=== PATIENT | male | born 1930 | race Caucasian/White ===

== ENCOUNTER 2019-08-18 08:19 | Day surgery (SDC) | payer MEDICARE, BC ==
[2019-08-13 16:11] LABS: CLARITY,URINE CLEAR (Clear); COLOR,URINE STRAW (Yellow); GLUCOSE, URINE NEGATIVE (Neg); KETONES,URINE NEGATIVE (Neg); LEUKOCYTE ESTERASE ,URINE NEGATIVE (Neg); NITRITES, URINE NEGATIVE (Neg); OCCULT BLOOD,URINE TRACE-INTACT (Neg); PH,URINE 6.5 (4.8-8.0); PROTEIN,URINE NEGATIVE (Neg); UROBILINOGEN,URINE 0.2 E.U/dL (0.2-1.0)
[2019-08-13 16:12] LABS: BASOPHILS % (AUTO) 0.4 % (0-1); EOSINOPHILS # (AUTO) 0.1 X10'3 (0-0.9); EOSINOPHILS % (AUTO) 2.6 % (0-6); LYMPHOCYTES # (AUTO) 1.4 X10'3 (1.1-4.8); MEAN CORPUSCULAR HEMOGLOBIN 30.8 PG (27.0-31.0); MEAN CORPUSCULAR HGB CONC 33.6 g/dL (33.0-36.5); MEAN CORPUSCULAR VOLUME 91.7 FL (78-98); MEAN PLATELET VOLUME 9.3 FL (7.4-10.4); MONOCYTES # (AUTO) 0.6 X10'3 (0-0.9); NEUTROPHILS # (AUTO) 2.7 X10'3 (1.8-7.7); PRE OP HEMATOCRIT 44.7 % (42.0-52.0); PRE OP PLATELET COUNT 186 X10'3 (140-440); RED BLOOD COUNT 4.87 X10'6 (4.70-6.10); RED CELL DISTRIBUTION WIDTH 14.3 % (11.5-14.5)
[2019-08-13 16:12] LABS: UA COLLECTION TYPE CLN CATCH MIDSTREAM
[2019-08-13 16:17] LABS: BACTERIA,URINE NONE SEEN /HPF (Neg); MUCUS STRANDS NONE SEEN /LPF (Neg); RBC,URINE 0-2 /HPF (0-2); SQUAMOUS EPITHELIAL CELL,UR NONE SEEN /LPF (FEW); WBC,URINE 0-4 /HPF (0-4)
[2019-08-13 16:27] LABS: PRE OP INR 1.1 INR; PRE OP PROTIME 11.1 SECONDS (9.0-12.0)
[2019-08-13 16:38] LABS: ALBUMIN/GLOBULIN RATIO 1.2 (1.1-1.5); ALKALINE PHOSPHATASE 102 IU/L (46-116); BLOOD UREA NITROGEN 17 MG/DL (7-18); BUN/CREATININE RATIO 17.3 (5.4-32.0); CALCIUM 8.5 MG/DL (8.5-10.1); CHLORIDE 107 MMOL/L (99-107); CREATININE 0.98 MG/DL (0.60-1.10); PRE OP ALT 33 U/L (30-65); PRE OP ANION GAP 8 (8-16); PRE OP AST 25 U/L (10-37); PRE OP BILIRUB, TOTAL 0.6 MG/DL (0.0-1.0); PRE OP GLUCOSE 89 MG/DL (70-104); PRE OP SODIUM 144 MMOL/L (135-145); TOTAL CARBON DIOXIDE 29.4 MMOL/L (24-32); TOTAL PROTEIN 7.3 G/DL (6.4-8.2); eGFR 73 ML/MIN
[2019-08-13 16:49] LABS: PRE OP POTASSIUM 3.3 MMOL/L (3.4-5.1)
[~2019-08-18] VITALS: Ht 180.3 cm; Wt 78.0 kg
[2019-08-18] VITALS (10 sets, daily range): BP systolic 102–145; BP diastolic 59–97
[~2019-08-18 08:19] MED LIST: AMLO1CAP PO; APIX5TAB3 PO; ATOR10TA PO; cefazolin/dext.iso 2gm/100ml 100 ML IV ONE; famotidine 10mg tablet PO ONE; ringers solution, lacted 1,000 ML IV SCH
[2019-08-18] MEDS ORDERED: ringers solution, lacted 1,000 ML IV SCH (11:28)
[2019-08-18] MEDS ORDERED: meperidine/PF 25mg/ml syringe IV PRN ×3 (11:30)
[2019-08-18] MEDS ORDERED: proCHLORperazine 10 MG/2 ml inj IV PRN (11:30)
[2019-08-18] MEDS ORDERED: ondansetron/PF 4mg/2ml inj IV PRN (11:30)
[2019-08-18] MEDS ORDERED: morphine 4 MG/ML inj SYRINge IV PRN ×2 (11:30)
[2019-08-18] MEDS ORDERED: BUPIVAcaine/PF 2.5 mg/ml (0.25%) 30ml vial ONE (14:16)
[2019-08-18] MEDS ORDERED: ceFAZolin 1000mg inj ONE (14:16)
[2019-08-18] MEDS ORDERED: neostigmine methylsulfate 1 MG/ML 10ml vial ONE (14:43)
[2019-08-18] MEDS ORDERED: glycopyrrolate 0.2mg/ml inj ONE (14:43)
[2019-08-18] MEDS ORDERED: dexamethasone sod phosphate 10mg/ml inj ONE (14:43)
[2019-08-18] MEDS ORDERED: desflurane 240ml liquid inh. IH ONE (14:43)
[2019-08-18] MEDS ORDERED: fentaNYL/PF 50MCG/1 ML 2ML syringe ONE (14:46)
[2019-08-18] MEDS ORDERED: midazolam 2 mg/2 ml injection ONE (14:46)
[2019-08-18] MEDS ORDERED: rocuronium 10mg/ml inj IV ONE (14:58)
[2019-08-18] MEDS ORDERED: ondansetron/PF 4mg/2ml inj ONE (14:58)
[2019-08-18] MEDS ORDERED: propofol inj 20 ML IV ONE (14:58)
[2019-08-18] MEDS ORDERED: esmolol inj. 10 ML IV ONE (14:58)
[2019-08-18] MEDS ORDERED: LIDOcaine 2% (20mg/ml) 5ml vial ONE (14:58)
[2019-08-18] MEDS ORDERED: traMADol 50MG tablet PO ONE (17:00)
--- NOTE | 2019-08-18 17:29 | NUR ---
D/C INSTRUCTIONS GIVEN AND GONE OVER W/PT WHO VERBALIZED UNDERSTANDING, PT D/CD TO HOME VIA W/C TO PRIVATE VEHICLE W/O INCIDENT. Addendum: 08/18/19 at 1907 by Nadege Garza RN Amended: Links added.
== END 2019-08-18 17:29 | disposition home or self-care (01) ==
LOC: PAS 08:19
PROVIDERS: ATTEND Surgery
DX: K40.90 Unilateral inguinal hernia, without obstruction or gangrene, not specified as recurrent (principal); I10 Essential (primary) hypertension; I27.9 Pulmonary heart disease, unspecified; Z98.890 Other specified postprocedural states; Z87.891 Personal history of nicotine dependence; Z79.899 Other long term (current) drug therapy; Z79.01 Long term (current) use of anticoagulants; Z80.1 Family history of malignant neoplasm of trachea, bronchus and lung
CPT/HCPCS: 36415; 49650; 71046; 80053; 81001; 82948; 85025; 85610; 85730; C1781; J0690; J1100; J2001; J2250; J2405; J2704; J2710; J3010; J3490; A4215; A4314; A4618; A6258; J7120